=== PATIENT | male | born 1940 | race Caucasian/White ===

== ENCOUNTER 2020-09-11 11:56 | Inpatient (IN) | payer MEDICARE, OTHER ==
[~2020-09-11] VITALS: Ht 182.9 cm; Wt 125.6 kg
[~2020-09-11 11:56] MED LIST: BACTROBAN OINT22 GM TOP; CLEOCIN HCL300 MG PO; CYMBALTA60 MG PO; FLOMAX0.4 MG PO; GLUCOSAMINE-MS1 EAC1 PO; LANTUS SOL100 UNIT/1 SQ; METOPROLOL TART25 MG PO; NEURONTIN 300300 MG PO; NOVOLOG FL100 UNIT/1 SQ; PRANDIN2 MG PO; PREDNISONE20 MG PO; PROTONIX40 MG PO; ZYLOPRIM 100 M100 MG PO; ZYVOX600 MG PO
[2020-09-12] MEDS ORDERED: NEURONTIN300 MG PO (01:55)
[2020-09-12] MEDS ORDERED: ASPIRIN EC81 MG PO (02:01)
[2020-09-12] MEDS ORDERED: REFRESH TEARS15 ML OP (02:03)
[2020-09-12] MEDS ORDERED: FINASTERIDE5 MG PO (02:04)
[2020-09-12] MEDS ORDERED: FUROSEMIDE20 MG PO (02:05)
[2020-09-12] MEDS ORDERED: NOVOLOG100 UNIT/1 SC (02:06)
[2020-09-12] MEDS ORDERED: LEVEMIR100 UNIT/1 SQ (02:08)
[2020-09-12] MEDS ORDERED: NASONEX17 GM (02:10)
[2020-09-12] MEDS ORDERED: DAILY VITE1 EACH PO (02:11)
[2020-09-12 05:29] LABS: HEMOGLOBIN 13.3 gm/dl (14.0-17.5); RED BLOOD COUNT 4.7 M/UL (4.20-5.50)
[2020-09-13 04:06] LABS: HEMOGLOBIN 12.8 gm/dl (14.0-17.5); RED BLOOD COUNT 4.47 M/UL (4.20-5.50); WHITE BLOOD COUNT 9.2 K/UL (4.5-11.0)
[2020-09-18 03:51] LABS: HEMOGLOBIN 12.1 gm/dl (14.0-17.5); RED BLOOD COUNT 4.29 M/UL (4.20-5.50); WHITE BLOOD COUNT 10.8 K/UL (4.5-11.0)
--- NOTE | 2020-09-18 09:47 | NUR ---
PATIENT REQUESTED ALL 4 BED RAILS BE RAISED ON HIS BED FOR HIS COMFORT. STATES HE FEELS LIKE HE'S FALLING OUT WHEN THE RAILS ARE DOWN. THE RAILS ALSO HELP HOLD HIS PILLOWS AND BELONGINGS I.E. 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
[2020-09-21 11:50] LABS: HEMOGLOBIN 11.8 gm/dl (14.0-17.5); RED BLOOD COUNT 4.12 M/UL (4.20-5.50); WHITE BLOOD COUNT 12.4 K/UL (4.5-11.0)
[2020-09-25 04:07] LABS: HEMOGLOBIN 11.1 gm/dl (14.0-17.5); RED BLOOD COUNT 3.93 M/UL (4.20-5.50); WHITE BLOOD COUNT 7.8 K/UL (4.5-11.0)
[2020-09-25 04:25] LABS: BUN/CREATININE RATIO 12 (0-10)
[2020-09-26 04:37] LABS: BUN/CREATININE RATIO 12 (0-10)
[2020-09-27 04:26] LABS: RED BLOOD COUNT 3.91 M/UL (4.20-5.50); WHITE BLOOD COUNT 7.8 K/UL (4.5-11.0)
[2020-09-27] MEDS ORDERED: ACETAMINOPHEN325 MG PO (14:44)
[2020-09-27] MEDS ORDERED: HUMALOG 10100 UNITS/ SC (14:49)
[2020-09-28 03:22] LABS: BUN/CREATININE RATIO 12 (0-10)
== END 2020-09-28 13:10 | DRG 576 ==
LOC: MED SURG 4 09-12 00:15
PROVIDERS: Internal Medicine; Internal Medicine Nephrology; Surgery; ADMIT Internal Medicine
PROC: 07B60ZX Excision of Left Axillary Lymphatic, Open Approach, Diagnostic (ICD-10-PCS; 2020-09-17)
PROC: 0HREX73 Replacement of Left Lower Arm Skin with Autologous Tissue Substitute, Full Thickness, External Approach (ICD-10-PCS; principal; 2020-09-17 11:00)
DX: C4A.62 Merkel cell carcinoma of left upper limb, including shoulder (principal); J69.0 Pneumonitis due to inhalation of food and vomit; N17.0 Acute kidney failure with tubular necrosis; N13.6 Pyonephrosis; N13.8 Other obstructive and reflux uropathy; E87.1 Hypo-osmolality and hyponatremia; E87.2 Acidosis; Z16.12 Extended spectrum beta lactamase (ESBL) resistance; E11.40 Type 2 diabetes mellitus with diabetic neuropathy, unspecified; B96.4 Proteus (mirabilis) (morganii) as the cause of diseases classified elsewhere; E78.5 Hyperlipidemia, unspecified; K21.9 Gastro-esophageal reflux disease without esophagitis; E11.65 Type 2 diabetes mellitus with hyperglycemia; G47.33 Obstructive sleep apnea (adult) (pediatric); E87.6 Hypokalemia; E11.22 Type 2 diabetes mellitus with diabetic chronic kidney disease; I12.9 Hypertensive chronic kidney disease with stage 1 through stage 4 chronic kidney disease, or unspecified chronic kidney disease; N18.30 Chronic kidney disease, stage 3 unspecified; N40.1 Benign prostatic hyperplasia with lower urinary tract symptoms; M19.90 Unspecified osteoarthritis, unspecified site; F41.9 Anxiety disorder, unspecified; E11.36 Type 2 diabetes mellitus with diabetic cataract; H26.9 Unspecified cataract; Z83.3 Family history of diabetes mellitus; Z88.2 Allergy status to sulfonamides; Z74.01 Bed confinement status; Z88.1 Allergy status to other antibiotic agents; Z88.8 Allergy status to other drugs, medicaments and biological substances; Z98.890 Other specified postprocedural states; Z82.49 Family history of ischemic heart disease and other diseases of the circulatory system; Z80.9 Family history of malignant neoplasm, unspecified
CPT/HCPCS: 36415; 71045; 78195; 80048; 80053; 81001; 82550; 82803; 82962; 84550; 85025; 87040; 87086; 88341; 88342; 94640; 94660; 94760; A9520; A9541; J0690; J1335; J1650; J2001; J2250; J2270; J2704; J2710; J3010; J7030; J7120; Q9968; U0002

== ENCOUNTER → 2020-12-23 | Outpatient (CLI) | payer MEDICARE, OTHER ==
[~2020-12-23] MED LIST changes: +ACETAMINOPHEN325 MG PO; +ACETAMINOPHEN500 M1 PO; +ASPIRIN EC81 MG PO; +DAILY VITE1 EACH PO; +FINASTERIDE5 MG PO; +FUROSEMIDE20 MG PO; +HUMALOG 10100 UNITS/ SC; +LEVEMIR100 UNIT/1 SQ; +NASONEX17 GM; +NEURONTIN300 MG PO; +NOVOLOG100 UNIT/1 SC; +REFRESH TEARS15 ML OP; +ULTRAM50 MG PO; +[UNRECOGNIZED DRUG - REMARK] TOP
== END ==
LOC: LBRF 11:20
DX: C4A.9 Merkel cell carcinoma, unspecified (principal)

== ENCOUNTER → 2021-01-02 | Day surgery (SDC) | payer MEDICARE, OTHER | END | disposition home or self-care (01) | LOC: OR 05:51 | DX: C4A.62 Merkel cell carcinoma of left upper limb, including shoulder (principal); I12.9 Hypertensive chronic kidney disease with stage 1 through stage 4 chronic kidney disease, or unspecified chronic kidney disease; E11.22 Type 2 diabetes mellitus with diabetic chronic kidney disease; N18.30 Chronic kidney disease, stage 3 unspecified; F32.9 Major depressive disorder, single episode, unspecified; E11.42 Type 2 diabetes mellitus with diabetic polyneuropathy; N40.0 Benign prostatic hyperplasia without lower urinary tract symptoms; K21.9 Gastro-esophageal reflux disease without esophagitis; G47.33 Obstructive sleep apnea (adult) (pediatric); M19.90 Unspecified osteoarthritis, unspecified site; Z99.89 Dependence on other enabling machines and devices; Z87.891 Personal history of nicotine dependence; Z88.2 Allergy status to sulfonamides; Z88.1 Allergy status to other antibiotic agents; Z79.4 Long term (current) use of insulin; Z79.899 Other long term (current) drug therapy; Z79.82 Long term (current) use of aspirin | CPT/HCPCS: 71045; 82962; J0290; J1100; J2001; J2270; J2405; J2704; J3010; J7030; J7120 ==

== ENCOUNTER 2021-03-13 07:52 | Day surgery (SDC) | payer MEDICARE, OTHER ==
[~2021-03-13] VITALS: Ht 182.9 cm; Wt 113.4 kg
[2021-03-13 09:55] LABS: HEMOGLOBIN 12.8 gm/dl (14.0-17.5); RED BLOOD COUNT 4.42 M/UL (4.20-5.50); WHITE BLOOD COUNT 10.3 K/UL (4.5-11.0)
[2021-03-13 10:17] LABS: BUN/CREATININE RATIO 16 (0-10)
--- NOTE | 2021-03-14 15:05 | NUR ---
REPORT CALLED TO ROBIN SANTIAGO AT [facility] [place]. [facility] NOTIFIED FOR TRANSPORT TO [facility].
== END 2021-03-14 16:47 | disposition home or self-care (01) ==
LOC: OR 07:52 → M/S 17:10 → OR 17:36 → M/S 03-14 16:47 → OR 03-14 16:47
PROVIDERS: Anesthesiology
DX: C7B.1 Secondary Merkel cell carcinoma (principal); C80.1 Malignant (primary) neoplasm, unspecified; E11.22 Type 2 diabetes mellitus with diabetic chronic kidney disease; I12.9 Hypertensive chronic kidney disease with stage 1 through stage 4 chronic kidney disease, or unspecified chronic kidney disease; N18.30 Chronic kidney disease, stage 3 unspecified; E11.42 Type 2 diabetes mellitus with diabetic polyneuropathy; N40.0 Benign prostatic hyperplasia without lower urinary tract symptoms; E66.9 Obesity, unspecified; G47.33 Obstructive sleep apnea (adult) (pediatric); Z20.822 Contact with and (suspected) exposure to COVID-19; Z86.73 Personal history of transient ischemic attack (TIA), and cerebral infarction without residual deficits; Z88.1 Allergy status to other antibiotic agents; Z88.2 Allergy status to sulfonamides; Z87.891 Personal history of nicotine dependence
CPT/HCPCS: 80048; 82962; 85025; 93005; G0378; J0690; J2001; J2270; J2370; J2405; J2704; J3010; J7030; J7120; U0002

== ENCOUNTER → 2021-07-23 | Outpatient (CLI) | payer MEDICARE, OTHER | LOC: CT 13:05 | DX: C4A.62 Merkel cell carcinoma of left upper limb, including shoulder (principal); D69.6 Thrombocytopenia, unspecified; K56.41 Fecal impaction; K80.20 Calculus of gallbladder without cholecystitis without obstruction | CPT/HCPCS: 70490; 71250 ==

== ENCOUNTER → 2021-08-15 | Outpatient (CLI) | payer MEDICARE, OTHER ==
[~2021-08-15] VITALS: Ht 182.9 cm; Wt 111.6 kg
[~2021-08-15] MED LIST changes: +ELIQUIS5 MG PO; -NEURONTIN300 MG PO; +NEURONTIN400 MG PO; +STOOL SOFTENER250 MG PO; +TRULICITY0.75 MG/0. SQ
[2021-08-15 12:38] LABS: HEMOGLOBIN 12.4 gm/dl (14.0-17.5); RED BLOOD COUNT 4.27 M/UL (4.20-5.50); WHITE BLOOD COUNT 8.7 K/UL (4.5-11.0)
== END ==
LOC: OPSV 11:34
PROVIDERS: Internal Medicine
DX: C4A.9 Merkel cell carcinoma, unspecified (principal)
CPT/HCPCS: 80053; 85025; 96360; 96375; 96413; J1200; J1642; J7050; J9271